=== PATIENT | female | born 1955 | race Caucasian/White ===

== ENCOUNTER 2024-09-12 10:42 | Outpatient (CLI) | payer MEDICARE, SELFPAY ==
--- NOTE | 2024-09-12 12:11 | P.ANES_ITS ---
Anesthesia Charges Start Date/Time Anesthesia Start Date: 09/12/24 Anesthesia Start Time: 11:42 Stop Date/Time Anesthesia Stop Date: 09/12/24 Anesthesia Stop Time: 12:08 Coding CPT Codes CPT Codes: GORAN LWR INTST SCR COLSC - [id number] ([id number]) P2 - PATIENT W/MILD SYST DISEASE, QK - FRANKFURTER INSPECTOR 2-4 CNCRNT ANES PROC, QX - DRIFT MINER SVC W/ MD MED DIRECTION
--- NOTE | 2024-09-12 12:11 | W.ANESCHARGE ---
Anesthesia Charges Start Date/Time Anesthesia Start Date: 09/12/24 Anesthesia Start Time: 11:42 Stop Date/Time Anesthesia Stop Date: 09/12/24 Anesthesia Stop Time: 12:08 Coding CPT Codes CPT Codes: GORAN LWR INTST SCR COLSC - [id number] ([id number]) P2 - PATIENT W/MILD SYST DISEASE, QK - EVENT SPECIALIST 2-4 CNCRNT ANES PROC, QX - PEST CONTROL SPECIALIST SVC W/ MD MED DIRECTION
--- NOTE | 2024-09-12 12:19 | P.ANES_ITS ---
Anesthesia Charges Start Date/Time Anesthesia Start Date: 09/12/24 Anesthesia Start Time: 11:42 Stop Date/Time Anesthesia Stop Date: 09/12/24 Anesthesia Stop Time: 12:08 Coding CPT Codes CPT Codes: GORAN LWR INTST SCR COLSC - [id number] ([id number]) P2 - PATIENT W/MILD SYST DISEASE, QK - BLANKING MACHINE OPERATOR 2-4 CNCRNT ANES PROC, QX - DIMENSIONAL INSPECTOR SVC W/ MD MED DIRECTION
--- NOTE | 2024-09-12 12:19 | W.ANESCHARGE ---
Anesthesia Charges Start Date/Time Anesthesia Start Date: 09/12/24 Anesthesia Start Time: 11:42 Stop Date/Time Anesthesia Stop Date: 09/12/24 Anesthesia Stop Time: 12:08 Coding CPT Codes CPT Codes: GORAN LWR INTST SCR COLSC - [id number] ([id number]) P2 - PATIENT W/MILD SYST DISEASE, QK - TUBE INSPECTOR 2-4 CNCRNT ANES PROC, QX - PERSONAL PROPERTY ASSESSOR SVC W/ MD MED DIRECTION
== END 2024-09-12 10:43 | disposition home or self-care (01) ==
LOC: OP CLINIC 10:47
PROVIDERS: PCP Family Medicine; Visit Provider Internal Medicine Gastroenterology
DX: Z12.11 Encounter for screening for malignant neoplasm of colon (principal); Z86.0101 Personal history of adenomatous and serrated colon polyps
CPT/HCPCS: 00812; 45378; J2704